=== PATIENT | female | born 1990 | race Caucasian/White ===

== ENCOUNTER 2018-03-13 22:48 | Emergency (ER) | payer OTHER, MEDICAID, SELFPAY ==
[2018-03-13 23:04] VITALS: BP 110/78; PULSE 108; RESP 18; TEMP 36.9; O2SAT 99; BMI 27.4
[2018-03-13 23:25] LABS: RBC Urine None Seen (0-5/HPF); WBC Urine None Seen (0-5/HPF)
[2018-03-13 23:26] LABS: Appearance Urine UA CLEAR; Bilirubin Urine UA NEGATIVE (NEGATIVE); Color Urine UA YELLOW; Glucose Urine UA 2+ g/dL (Normal); Ketones Urine UA TRACE (NEGATIVE); Leukocyte Esterase Urine UA NEGATIVE (NEGATIVE); Nitrite Urine UA NEGATIVE (Negative); Occult Blood Urine UA NEGATIVE (Negative); Protein Urine UA NEGATIVE (Negative); Urobilinogen Urine UA 0.2 E.U./dL (0.2); pH Urine UA 7.5 (4.5-8.0)
[2018-03-13 23:32] LABS: Pregnancy Test Urine Negative (Negative)
[2018-03-13 23:42] LABS: Squamous Epithelial Cell Urine 0-1 /HPF
[2018-03-13 23:43] LABS: Culture Indicated Urine Cult Not Indicated
--- NOTE | 2018-03-14 00:22 | ED.BACK ---
HPI - Back Pain/Injury General Chief Complaint: Back Pain/Injury Stated Complaint: THINKS KIDNEY INFECTION Time Seen by Provider: 03/14/18 00:12 Source: patient Mode of arrival: ambulatory Limitations: no limitations History of Present Illness HPI Narrative: Patient is a 19-year-old female who presents with left flank pain. She says this frequently feels like her kidney infections. Her she is a type 1 diabetic. She never has positive urine cultures. She was admitted once with severe sepsis. Her symptoms started today. She has got good at recognizing the symptoms. Sometimes the pain radiates down like her to her abdomen but not typically. No history of kidney stones. She denies any injury. MD Complaint: back pain Related Data Previous Rx's Medication Instructions Recorded sulfamethoxazole-trimethoprim 1 tab PO BID 5 Days #10 tab 03/14/18 [Bactrim DS] Allergies Allergy/AdvReac Type Severity Reaction Status Date / Time ciprofloxacin [From Cipro] Allergy Intermediate Verified 03/13/18 23:12 lidocaine Allergy Intermediate Verified 03/13/18 23:12 vancomycin Allergy Verified 03/13/18 23:12 Review of Systems Review of Systems GENERAL: Denies chills, fatigue, malaise, fever, sweats, travel HEENT: Denies sinus pain, ear pain, sore throat, difficulty swallowing, neck pain RESPIRATORY: Denies dyspnea, cough, wheezing, hemoptysis, sputum. CARDIOVASCULAR: Denies chest pain, palpitations, orthopnea, edema GASTROINTESTINAL: Denies nausea, vomiting, abdominal pain, diarrhea, constipation, melena. : MUSCULOSKELETAL: Denies weakness, joint pain, or bony pain SKIN: No rash, no erythema, no pruritus NEUROLOGIC: Denies weakness, dizziness, headache, numbness, change in speech, confusion PSYCHIATRIC: No concerning psychosocial issues. 12 point review of systems is negative except for those stated above and HPI PFSH Social History Smoking Status: Never smoker Exam Initial Vital Signs Initial Vital Signs: Vital Signs Temperature 98.4 F 03/13/18 23:04 Pulse Rate 108 H 03/13/18 23:04 Respiratory Rate 18 03/13/18 23:04 Blood Pressure 110/78 03/13/18 23:04 Pulse Oximetry 99 03/13/18 23:04 GENERAL: Well-appearing, well-nourished and in no acute distress. HEENT: Head atraumatic,EOMI, pupils reactive, face symmetric, moist mucous membranes CARDIOVASCULAR: Regular rate and rhythm without murmurs, rubs or gallops. RESPIRATORY: Breath sounds equal bilaterally, no wheezes rales or rhonchi. ABDOMEN: Soft, nontender. Normoactive bowel sounds all 4 quadrants. No guarding or rebound. : Mild left flank pain EXTREMITIES: Normal range of motion, no clubbing or edema. Neurovascularly intact NEUROLOGICAL: Alert and oriented x4.Normal gait and speech. Cranial nerves II through XII grossly intact. SKIN: Warm, dry, no laceration, no petechiae, no rashes or lesions. Course Orders Ordered: ED Orders 03/13/18 23:24 Test Urine Stat Urinalysis and Microscopic Stat 03/14/18 00:30 Basic Metabolic Panel Stat Complete Blood Count AUTO DIFF Stat Discontinued Medications Sodium Chloride (Normal Saline 0.9%) 1,000 mls @ 1,000 mls/hr IV BOLUS ONE Stop: 03/14/18 01:23 Last Infusion: 03/14/18 01:24 Dose: 0 mls/hr Admin: 03/14/18 00:33 Dose: 1,000 mls/hr Ketorolac Tromethamine (Toradol) 15 mg IV NOW ONE Stop: 03/14/18 00:36 Last Admin: 03/14/18 00:38 Dose: 15 mg Ondansetron HCl (Zofran) 4 mg IV NOW ONE Stop: 03/14/18 00:36 Last Admin: 03/14/18 00:39 Dose: 4 mg Trimethoprim/Sulfamethoxazole (Bactrim Ds Prepack) 1 bottle MISC SEEINSTR ONE Stop: 03/14/18 01:10 Last Admin: 03/14/18 01:19 Dose: 1 bottle Vital Signs - 8 hr 03/13/18 23:04 03/14/18 00:45 03/14/18 01:24 Temperature 98.4 F 98.1 F Pulse Rate 108 H 80 80 Respiratory Rate 18 18 17 Blood Pressure 110/78 107/70 Blood Pressure [Right Arm] 109/75 Pulse Oximetry 99 99 99 MDM - Back Pain/Injury Lab Data Result diagrams: 03/14/18 00:30 03/14/18 00:30 Lab Results 03/13/18 03/14/18 03/14/18 Range/Units 23:24 00:30 00:30 WBC 6.1 (4.5-11.0) X10^3/uL RBC 4.71 (4.0-5.2) X10^6/uL Hgb 13.9 (12.0-16.0) g/dL Hct 41.5 (36-46) % MCV 88.0 (80-100) fL MCH 29.5 (26-34) PG MCHC 33.6 (30-36) % RDW 13.2 (11.6-14.8) % Plt Count 300 (150-400) X10^3/uL Neut % (Auto) 38.4 L (50-75) % Lymph % (Auto) 48.5 H (25-40) % [place] % (Auto) 10.3 (3-14) % Eos % (Auto) 2.0 (2-4) % Baso % (Auto) 0.8 (0-2) % Neut # (Auto) 2300 L (3534-6324) /uL Sodium 141 (137-145) mmol/L Potassium 4.0 (3.4-5.1) mmol/L Chloride 104 (98-107) mmol/L Carbon Dioxide 26 (22-32) mmol/L BUN 11 (7-17) mg/dL Creatinine 0.60 (0.52-1.04) mg/dL Estimated GFR > 60.0 (>60) mL/min BUN/Creatinine Ratio 18.3 (6-22) Glucose 235 H (70-100) mg/dL Calcium 8.7 (8.4-10.2) mg/dL Urine Color Yellow Urine Appearance Clear Urine pH 7.5 (4.5-8.0) Ur Specific [place] 1.010 (1.000-1.035) Urine Protein Negative (Negative) Urine Glucose (UA) 2+ (Normal) g/dL Urine Ketones Trace H (NEGATIVE) Urine Occult Blood Negative (Negative) Urine Nitrate Negative (Negative) Urine Bilirubin Negative (NEGATIVE) Urine Urobilinogen 0.2 (0.2) E.U./dL Ur Leukocyte Esterase Negative (NEGATIVE) Urine RBC None seen (0-5/HPF) Urine WBC None seen (0-5/HPF) Ur Squamous Epith Cells 0-1 /hpf Urine Bacteria Continuity Coordinator Ur Culture Indicated? Cult not indicated Micro UA Comment Not Reportable Urine Test Negative (Negative) MDM Narrative Medical decision making narrative: At this time patient does not appear septic or toxic. Her urine and blood work were reassuring. She says that her urine is or is negative. His will give her Bactrim for 5 days. In return if needed. She is type 1 diabetic and increased risk. No sign of DKA. Discharge Plan Departure Patient Disposition: Home Clinical Impression: Pyelonephritis Discharge Date/Time: 03/14/18 01:24 Interventions: ED Discharge Assessment Last Done: 03/14/18 01:24 Instructions: Kidney Infection Activity Restrictions/Additional Instructions: *You have been diagnosed with probable kidney infection *What to do: Urine and blood work today within normal limits *Continue to take medications as directed Bactrim 1 pill twice a day for 5 days *Follow up with your primary care provider in 2-3 days *Return to ER if you should have worsening pain, inability to tolerate fluids, increasing glucose or any new, worsening or concerning symptoms Prescriptions: New sulfamethoxazole-trimethoprim [Bactrim DS] 800-160 mg tablet 1 tab PO BID 5 Days Qty: 10 RF: 0
[2018-03-14 00:33] LABS: Add Manual Diff / Slide Review NO; Basophils Percent Auto 0.8 % (0-2); Hematocrit 41.5 % (36-46); Hemoglobin 13.9 g/dL (12.0-16.0); Lymphocytes Percent Auto 48.5 % (25-40); Mean Corpuscular HGB Conc 33.6 % (30-36); Mean Corpuscular Hemoglobin 29.5 PG (26-34); Monocytes Percent Auto 10.3 % (3-14); Neutrophils Absolute Auto 2300 /uL (3000-5900); Neutrophils Percent Auto 38.4 % (50-75); Platelet Count 300 X10^3/uL (150-400); Red Blood Cell Count 4.71 X10^6/uL (4.0-5.2); Red Cell Distribution Width 13.2 % (11.6-14.8); White Blood Cell Count 6.1 X10^3/uL (4.5-11.0)
[2018-03-14] MEDS: SODIUM CHLORIDE 0.9% 1,000 ML 1000 ML IV (00:33)
[2018-03-14] MEDS: KETOROLAC 60 MG/2 ML VIAL 15 MG IV (00:38)
[2018-03-14] MEDS: ONDANSETRON 4 MG/2 ML INJ IV (00:39)
[2018-03-14 00:44] LABS: BUN Creatinine Ratio 18.3 (6-22); Blood Urea Nitrogen 11 mg/dL (7-17); Calcium 8.7 mg/dL (8.4-10.2); Carbon Dioxide 26 mmol/L (22-32); Chloride 104 mmol/L (98-107); Estimated Glomerular Filt Rate > 60.0 mL/min (>60); Glucose 235 mg/dL (70-100); HEMOLYSIS < 15 (0-50); Sodium 141 mmol/L (137-145)
[2018-03-14 00:45] VITALS: BP 109/75; PULSE 80; RESP 18; O2SAT 99
[2018-03-14] MEDS: TRIMETH/SULFA 160/800 PREPACK 1 BOTTLE MISC (01:19)
[2018-03-14 01:24] VITALS: BP 107/70; PULSE 80; RESP 17; TEMP 36.7; O2SAT 99
== END 2018-03-14 01:24 | disposition home or self-care (01) ==
PROVIDERS: Emergency Provider Emergency Medicine
DX: N12 Tubulo-interstitial nephritis, not specified as acute or chronic (principal)
CPT/HCPCS: 36591; 80048; 81001; 81025; 85025; 96361; 96374; 96375; 99283; 99284; J1885; J2405

== ENCOUNTER 2018-10-01 19:33 | Emergency (ER) | payer OTHER, MEDICAID, SELFPAY ==
[2018-10-01 20:05] VITALS: BP 126/79; PULSE 96; RESP 15; TEMP 37.1; O2SAT 100; BMI 29.2
--- NOTE | 2018-10-01 20:32 | ED.UPPEXIN ---
HPI - Extremity Injury (Upper) <SAHRA Seymour-BC - Last Filed: 10/01/18 21:50> General Chief Complaint: Extremity Injury, Upper Stated Complaint: LT SHOULDER PAIN Time Seen by Provider: 10/01/18 20:11 Source: patient Mode of arrival: ambulatory Limitations: no limitations History of Present Illness HPI narrative: The patient is a 28-year-old female nonsmoker with history of injury to left shoulder who comes with a chief complaint of left shoulder pain. She was seen at her primary care physician's for shoulder pain 3 months ago, and has scheduled follow-up with Orthopedics soon. However she is going on a trip in a few days and would like to have it fixed now. She states her pain is getting worse, mobility is getting worse. She had a negative x-ray, and her PCP suspect rotator cuff tear. She is taking meloxicam for pain. she denies any repeat injury trauma or this is to get a new x-ray. Related Data Previous Rx's Medication Instructions Recorded cyclobenzaprine 10 mg PO TID PRN #30 tab 10/01/18 diclofenac sodium [Voltaren] 2 gram TOP QID PRN #100 gram 10/01/18 Allergies Allergy/AdvReac Type Severity Reaction Status Date / Time ciprofloxacin [From Cipro] Allergy Intermediate Verified 03/13/18 23:12 lidocaine Allergy Intermediate Verified 03/13/18 23:12 vancomycin Allergy Verified 03/13/18 23:12 Review of Systems <SAHRA Seymour-BC - Last Filed: 10/01/18 21:50> Review of Systems GENERAL: Denies chills, fatigue, malaise, fever, sweats. HEENT: Denies sinus pain, ear pain, sore throat, difficulty swallowing, dizziness. RESPIRATORY: Denies dyspnea, cough, wheezing, hemoptysis, sputum. CARDIOVASCULAR: Denies chest pain, palpitations, orthopnea, edema, GASTROINTESTINAL: Denies nausea, vomiting, abdominal pain, diarrhea, constipation, melena. : Denies dysuria, frequency, incontinence, hematuria, urinary retention. MUSCULOSKELETAL: See HPI SKIN: Denies rash, skin lesions, or other NEUROLOGIC: Denies weakness, headache, numbness, change in speech, confusion, seizures, incoordination. PSYCHIATRIC: No concerning psychosocial issues. 12 point review of systems is negative except for those stated above PFSH <EMILIANA Seymour - Last Filed: 10/01/18 21:50> Social History Smoking Status: Never smoker Social History Smoking Status: Never smoker Exam <EMILIANA Seymour - Last Filed: 10/01/18 21:50> Narrative Exam Narrative: GENERAL: This is a well-nourished, well-developed patient, no acute distress HEAD: Atraumatic. Normocephalic. No temporal or scalp tenderness. EYES: Pupils equal round and reactive. Extraocular motions intact. No scleral icterus. No injection or drainage. NECK: Trachea midline. No JVD or lymphadenopathy. Supple, nontender, no meningeal signs. RESPIRATORY: No cough. No increased respiratory effort. EXTREMITIES: Generalized pain to palpation left shoulder. Patient is able to abduct and adduct. Negative empty can test. Patient is only able to extend her right shoulder to 90?. Positive radial pulse. BACK: Nontender without deformity or crepitance. No flank tenderness. NEURO: AOx3. SKIN: No rash or erythema. No rash erythema ecchymosis noted left shoulder. Initial Vital Signs Initial Vital Signs: Vital Signs Temperature 98.7 F 10/01/18 20:05 Pulse Rate 96 H 10/01/18 20:05 Respiratory Rate 15 10/01/18 20:05 Blood Pressure 126/79 10/01/18 20:05 Pulse Oximetry 100 10/01/18 20:05 <Indira Addison DO - Last Filed: 10/02/18 02:29> Initial Vital Signs Initial Vital Signs: Vital Signs Temperature 98.7 F 10/01/18 20:05 Pulse Rate 96 H 10/01/18 20:05 Respiratory Rate 15 10/01/18 20:05 Blood Pressure 126/79 10/01/18 20:05 Pulse Oximetry 100 10/01/18 20:05 Course <EMILIANA Seymour - Last Filed: 10/01/18 21:50> Vital Signs - 8 hr 10/01/18 20:05 10/01/18 20:45 10/01/18 21:02 Temperature 98.7 F Pulse Rate 96 H 90 Pulse Rate [Left Radial] 90 Respiratory Rate 15 14 Blood Pressure 126/79 120/74 Pulse Oximetry 100 99 <Indira Addison DO - Last Filed: 10/02/18 02:29> Vital Signs - 8 hr 10/01/18 20:05 10/01/18 20:45 10/01/18 21:02 Temperature 98.7 F Pulse Rate 96 H 90 Pulse Rate [Left Radial] 90 Respiratory Rate 15 14 Blood Pressure 126/79 120/74 Pulse Oximetry 100 99 MDM - Extremity Injury (Upper) <SAHRA Seymour-BC - Last Filed: 10/01/18 21:50> MDM Narrative Medical decision making narrative: The patient is a 28-year-old female who presents with the chief complaint left shoulder pain. she has had x-rays which were negative and declines further x-rays. She is looking for pain management for her trip coming up. She may benefit from Flexeril, so I gave her a prescription. We also discussed use of Voltaren gel. She is allergic to lidocaine and fortunately. I discussed [id number] exercises to help prevent frozen shoulder. I offered to give her contact information for [facility], but she would rather follow up as previously arranged at [facility]. Discussed return precautions of acute concerns. Patient has no questions or concerns upon discharge. Discharge Plan Departure Patient Disposition: Home Clinical Impression: Acute shoulder pain Qualifiers: Laterality: left Qualified Code(s): M25.512 - Pain in left shoulder Discharge Date/Time: 10/01/18 21:02 Interventions: ED Discharge Assessment Last Done: 10/01/18 21:02 Instructions: How To Perform RICE (Rest, Ice, Compress, Elevate), DI for Shoulder Pain Activity Restrictions/Additional Instructions: I have given you prescriptions for pain medication as well as pain cream. Please follow up with primary care provider and orthopedist as we discussed. Please use rest ice compression elevation. Please do not use a sling as this can lead to frozen shoulder. Please come back to emergency department for any acute concerns. Prescriptions: New diclofenac sodium [Voltaren] 1 % gel 2 gram TOP QID PRN (Reason: pain) Qty: 100 RF: 0 cyclobenzaprine 10 mg tablet 10 mg PO TID PRN (Reason: muscle spasm) Qty: 30 RF: 0 <Indira Addison DO - Last Filed: 10/02/18 02:29> Cosign ED Attending Cosignature Attestation: I was immediately available in the department for consultation. Documentation has been reviewed. I agree with assessment and plan.
[2018-10-01 20:45] VITALS: PULSE 90
[2018-10-01 21:02] VITALS: BP 120/74; PULSE 90; RESP 14; O2SAT 99
== END 2018-10-01 21:02 | disposition home or self-care (01) ==
PROVIDERS: Emergency Provider Nurse Practitioner Family
DX: M25.512 Pain in left shoulder (principal)
CPT/HCPCS: 99282; 99283

== ENCOUNTER 2019-04-10 03:21 | Emergency (ER) | payer SELFPAY ==
[2019-04-10 03:33] VITALS: BP 110/73; PULSE 95; RESP 19; TEMP 36.4; O2SAT 94; BMI 28.3
[2019-04-10 03:43] LABS: HCO3 VBG 24 mmol/L (23-28); Oxygen Saturation VBG 96 % (70-75); PCO2 VBG 36.5 mmHg (45-50); PO2 VBG 81 mmHg (35-45); Total CO2 VBG 25 mmol/L (24-29); pH VBG 7.43 (7.33-7.43)
[2019-04-10] MEDS: ONDANSETRON 4 MG/2 ML INJ IV (03:45)
[2019-04-10] MEDS: SODIUM CHLORIDE 0.9% 1,000 ML 1000 ML IV (03:46)
--- NOTE | 2019-04-10 03:49 | ED.NAVMDI ---
HPI - Nausea/Vomiting/Diarrhea General Chief complaint: Nausea/Vomiting/Diarrhea Stated complaint: Type I diabetes feels ketoacidosis Time Seen by Provider: 04/10/19 03:30 Source: patient Mode of arrival: Ambulatory Limitations: no limitations History of Present Illness HPI Narrative: Patient is a 29-year-old female with history of type 1 diabetes and gastroparesis presenting with vomiting for the last 2-1/2 hours. She says she was doing okay earlier in the day. She was able to give herself some insulin. However the vomiting has been quite persistent for last 2-1/2 hours. Her glucose is actually 189 in the ED. She has diffuse abdominal discomfort. No fevers or chills. She got a little lightheaded today which is abnormal for her that has not happened when she has had gastroparesis flares. MD complaint: nausea, vomiting and abdominal pain Onset (ago): hour(s) (2.5) Associated Abdominal Pain: Yes Location of pain: diffuse Related Data Previous Rx's Medication Instructions Recorded cyclobenzaprine 10 mg PO TID PRN #30 tab 10/01/18 diclofenac sodium [Voltaren] 2 gram TOP QID PRN #100 gram 10/01/18 ondansetron 4 mg PO Q8H PRN #10 tab 04/10/19 Allergies Allergy/AdvReac Type Severity Reaction Status Date / Time ciprofloxacin [From Cipro] Allergy Intermediate Verified 03/13/18 23:12 lidocaine Allergy Intermediate Verified 03/13/18 23:12 vancomycin Allergy Verified 03/13/18 23:12 Review of Systems Review of Systems Narrative: GENERAL: Denies chills, fatigue, malaise, fever, sweats, travel HEENT: Denies sinus pain, ear pain, sore throat, difficulty swallowing, neck pain RESPIRATORY: Denies dyspnea, cough, wheezing, hemoptysis, sputum. CARDIOVASCULAR: Denies chest pain, palpitations, orthopnea, edema GASTROINTESTINAL: See HPI : Denies dysuria, frequency, incontinence, hematuria, urinary retention, flank pain. MUSCULOSKELETAL: Denies weakness, joint pain, or bony pain SKIN: No rash, no erythema, no pruritus NEUROLOGIC: Denies weakness, dizziness, headache, numbness, change in speech, confusion PSYCHIATRIC: No concerning psychosocial issues. 12 point review of systems is negative except for those stated above and HPI Patient History Medical History Type 1 diabetes (Acute) Social History Smoking Status: Never smoker alcohol intake frequency: a few times a month Substance Use Type: does not use Exam Initial Vital Signs Initial Vital Signs: Vital Signs Temperature 97.6 F 04/10/19 03:33 Pulse Rate 95 H 04/10/19 03:33 Respiratory Rate 19 04/10/19 03:33 Blood Pressure 110/73 04/10/19 03:33 Pulse Oximetry 94 04/10/19 03:33 GENERAL: Well-appearing, well-nourished and in no acute distress. HEENT: Head atraumatic,EOMI, pupils reactive, face symmetric, moist mucous membranes CARDIOVASCULAR: Regular rate and rhythm without murmurs, rubs or gallops. RESPIRATORY: Breath sounds equal bilaterally, no wheezes rales or rhonchi. ABDOMEN: Soft, nontender. Normoactive bowel sounds all 4 quadrants. No guarding or rebound : No CVA tenderness EXTREMITIES: Normal range of motion, no clubbing or edema. Neurovascularly intact NEUROLOGICAL: Alert and oriented x4.Normal gait and speech. SKIN: Warm, dry, no laceration, no petechiae, no rashes or lesions. Course Orders Ordered: ED Orders 04/10/19 03:30 EKG-12 Lead Stat 04/10/19 03:32 Venous Blood Gas Stat 04/10/19 03:41 Complete Blood Count AUTO DIFF Stat Comprehensive Metabolic Panel Stat Ketones (Beta-Hydroxybutyrate) Stat Lactate (Lactic Acid) Stat Procalcitonin Stat Discontinued Medications Sodium Chloride (Normal Saline 0.9%) 1,000 mls @ 1,000 mls/hr IV BOLUS ONE Stop: 04/10/19 04:29 Last Infusion: 04/10/19 04:50 Dose: 0 mls/hr Documented by: Admin: 04/10/19 03:46 Dose: 1,000 mls/hr Documented by: CARLOS Ketorolac Tromethamine (Toradol) 30 mg IM NOW ONE Stop: 04/10/19 03:49 Last Admin: 04/10/19 03:55 Dose: 30 mg Documented by: CARLOS Metoclopramide HCl (Reglan) 10 mg IV NOW ONE Stop: 04/10/19 03:57 Last Admin: 04/10/19 03:58 Dose: 10 mg Documented by: CARLOS Ondansetron HCl (Zofran) 4 mg IV NOW ONE Stop: 04/10/19 03:31 Last Admin: 04/10/19 03:45 Dose: 4 mg Documented by: CARLOS Vital Signs Vital signs: Vital Signs - 8 hr 04/10/19 03:33 04/10/19 04:08 04/10/19 04:51 Temperature 97.6 F Pulse Rate 95 H 81 88 Respiratory Rate 19 18 Blood Pressure 110/73 Blood Pressure [Left Arm] 111/71 106/71 Pulse Oximetry 94 96 99 MDM - Nausea/Vomiting/Diarrhea Lab Data Attestation: I reviewed the patient's lab results. Result diagrams: 04/10/19 03:41 04/10/19 03:41 Labs: Lab Results 04/10/19 04/10/19 04/10/19 Range/Units 03:32 03:41 03:41 WBC 8.1 (4.5-11.0) X10^3/uL RBC 4.70 (4.0-5.2) X10^6/uL Hgb 13.9 (12.0-16.0) g/dL Hct 40.7 (36-46) % MCV 86.5 (80-100) fL MCH 29.6 (26-34) PG MCHC 34.2 (30-36) % RDW 13.1 (11.6-14.8) % Plt Count 295 (150-400) X10^3/uL Neut % (Auto) 62.1 (50-75) % Lymph % (Auto) 25.4 (25-40) % [facility] % (Auto) 10.2 (3-14) % Eos % (Auto) 1.5 L (2-4) % Baso % (Auto) 0.8 (0-2) % Neut # (Auto) 5000 (3771-2430) /uL Lymph # (Auto) 2100 (6125-9874) /uL [facility] # (Auto) 800 (0-900) /uL Eos # (Auto) 100 (0-450) /uL Baso # (Auto) 100 (0-100) /uL VBG pH 7.43 (7.33-7.43) VBG pCO2 36.5 L (45-50) mmHg VBG pO2 81 H (35-45) mmHg VBG HCO3 24 (23-28) mmol/L VBG Total CO2 25 (24-29) mmol/L VBG O2 Saturation 96 H (70-75) % VBG Base Excess 0.0 (0-4) mmol/L Sodium (137-145) mmol/L Potassium (3.4-5.1) mmol/L Chloride (98-107) mmol/L Carbon Dioxide (22-32) mmol/L BUN (7-17) mg/dL Creatinine (0.52-1.04) mg/dL Estimated GFR (>60) mL/min BUN/Creatinine Ratio (6-22) Glucose (70-100) mg/dL Lactate (0.7-2.1) mmol/L Calcium (8.4-10.2) mg/dL Total Bilirubin (0.2-1.3) mg/dL AST (14-36) IU/L ALT (<35) IU/L Alkaline Phosphatase (38-126) U/L Total Protein (6.3-8.2) g/dL Albumin (3.5-5.0) g/dL Globulin (1.7-4.1) g/dL Albumin/Globulin Ratio (1.0-2.8) Procalcitonin < 0.05 (<0.5) ng/mL Ketones (<0.27) mmol/L 04/10/19 04/10/19 Range/Units 03:41 03:41 WBC (4.5-11.0) X10^3/uL RBC (4.0-5.2) X10^6/uL Hgb (12.0-16.0) g/dL Hct (36-46) % MCV (80-100) fL MCH (26-34) PG MCHC (30-36) % RDW (11.6-14.8) % Plt Count (150-400) X10^3/uL Neut % (Auto) (50-75) % Lymph % (Auto) (25-40) % [facility] % (Auto) (3-14) % Eos % (Auto) (2-4) % Baso % (Auto) (0-2) % Neut # (Auto) (3512-2941) /uL Lymph # (Auto) (7837-6770) /uL [facility] # (Auto) (0-900) /uL Eos # (Auto) (0-450) /uL Baso # (Auto) (0-100) /uL VBG pH (7.33-7.43) VBG pCO2 (45-50) mmHg VBG pO2 (35-45) mmHg VBG HCO3 (23-28) mmol/L VBG Total CO2 (24-29) mmol/L VBG O2 Saturation (70-75) % VBG Base Excess (0-4) mmol/L Sodium 139 (137-145) mmol/L Potassium 4.2 (3.4-5.1) mmol/L Chloride 106 (98-107) mmol/L Carbon Dioxide 25 (22-32) mmol/L BUN 16 (7-17) mg/dL Creatinine 0.60 (0.52-1.04) mg/dL Estimated GFR > 60.0 (>60) mL/min BUN/Creatinine Ratio 26.7 H (6-22) Glucose 185 H (70-100) mg/dL Lactate 0.8 (0.7-2.1) mmol/L Calcium 8.5 (8.4-10.2) mg/dL Total Bilirubin 0.3 (0.2-1.3) mg/dL AST 23 (14-36) IU/L ALT 15 (<35) IU/L Alkaline Phosphatase 40 (38-126) U/L Total Protein 6.8 (6.3-8.2) g/dL Albumin 3.9 (3.5-5.0) g/dL Globulin 2.9 (1.7-4.1) g/dL Albumin/Globulin Ratio 1.3 (1.0-2.8) Procalcitonin (<0.5) ng/mL Ketones 0.16 (<0.27) mmol/L Point of Care Testing Test Results Negative Glucose POC 190 Urine Dip Bedside Urine Glucose 250 mg/dl Bedside Urine Bilirubin - Negative Bedside Urine Ketone - Negative Urine Specific [place] 1.015 Bedside Urine Occult Blood - Negative Bedside Urine pH 7.5 Bedside Urine Protein - Negative Bedside Urine Urobilinogen +/- 1mg Bedside Urine Nitrite - Negative Bedside Urine Leukocytes - Negative Esterase MDM Narrative Medical decision making narrative: Patient is not in DKA. This is likely has gastroparesis. After Zofran and Reglan she is overall feeling much better tolerating fluids. Feels like she can go home. She has Reglan at home requesting prescription for Zofran. Discharge Plan Departure Patient Disposition: Home Clinical Impression: Gastroparesis Discharge Date/Time: 04/10/19 05:00 Instructions: DI for Gastroparesis Activity Restrictions/Additional Instructions: *You have been diagnosed with gastroparesis *What to do: At this time no sign of DKA. Recommend increasing fluid intake. *Continue to take medications as directed Zofran 4 mg every 8 hours if needed for nausea or vomiting *Follow up with your primary care provider in 2-3 days *Return to ER if you should have persistent nausea vomiting increased abdominal pain high glucose or any new, worsening or concerning symptoms Prescriptions: New ondansetron 4 mg tablet,disintegrating 4 mg PO Q8H PRN (Reason: nausea and vomiting) Qty: 10 RF: 0 No Action diclofenac sodium [Voltaren] 1 % gel 2 gram TOP QID PRN (Reason: pain) Qty: 100 RF: 0 cyclobenzaprine 10 mg tablet 10 mg PO TID PRN (Reason: muscle spasm) Qty: 30 RF: 0
[2019-04-10 03:54] LABS: Add Manual Diff / Slide Review NO; Basophils Absolute Auto 100 /uL (0-100); Basophils Percent Auto 0.8 % (0-2); Eosinophils Absolute Auto 100 /uL (0-450); Eosinophils Percent Auto 1.5 % (2-4); Hematocrit 40.7 % (36-46); Hemoglobin 13.9 g/dL (12.0-16.0); Lymphocytes Absolute Auto 2100 /uL (1100-4500); Lymphocytes Percent Auto 25.4 % (25-40); Mean Corpuscular HGB Conc 34.2 % (30-36); Mean Corpuscular Hemoglobin 29.6 PG (26-34); Mean Corpuscular Volume 86.5 fL (80-100); Monocytes Absolute Auto 800 /uL (0-900); Monocytes Percent Auto 10.2 % (3-14); Neutrophils Absolute Auto 5000 /uL (1500-7000); Neutrophils Percent Auto 62.1 % (50-75); Platelet Count 295 X10^3/uL (150-400); Red Cell Distribution Width 13.1 % (11.6-14.8); White Blood Cell Count 8.1 X10^3/uL (4.5-11.0)
[2019-04-10] MEDS: KETOROLAC 60 MG/2 ML VIAL 30 MG IM (03:55)
[2019-04-10] MEDS: METOCLOPRAMIDE 10 MG/2 ML INJ IV (03:58)
[2019-04-10 03:59] LABS: Lactate (Lactic Acid) 0.8 mmol/L (0.7-2.1)
[2019-04-10 04:01] LABS: Alanine Aminotransferase 15 IU/L (<35); Albumin 3.9 g/dL (3.5-5.0); Albumin Globulin Ratio 1.3 (1.0-2.8); Alkaline Phosphatase 40 U/L (38-126); Aspartate Aminotransferase 23 IU/L (14-36); BUN Creatinine Ratio 26.7 (6-22); Bilirubin Total 0.3 mg/dL (0.2-1.3); Blood Urea Nitrogen 16 mg/dL (7-17); Calcium 8.5 mg/dL (8.4-10.2); Carbon Dioxide 25 mmol/L (22-32); Chloride 106 mmol/L (98-107); Estimated Glomerular Filt Rate > 60.0 mL/min (>60); Globulin 2.9 g/dL (1.7-4.1); Glucose 185 mg/dL (70-100); HEMOLYSIS 27 (0-50); Potassium 4.2 mmol/L (3.4-5.1); Sodium 139 mmol/L (137-145); Total Protein 6.8 g/dL (6.3-8.2)
[2019-04-10 04:04] LABS: Ketones (Beta-Hydroxybutyrate) 0.16 mmol/L (<0.27)
[2019-04-10 04:08] VITALS: BP 111/71; PULSE 81; O2SAT 96
[2019-04-10 04:17] LABS: Procalcitonin < 0.05 ng/mL (<0.5)
[2019-04-10 04:51] VITALS: BP 106/71; PULSE 88; RESP 18; O2SAT 99
== END 2019-04-10 05:00 | disposition home or self-care (01) ==
PROVIDERS: Emergency Provider Emergency Medicine
DX: K31.84 Gastroparesis (principal)
CPT/HCPCS: 36415; 80053; 81003; 81025; 82009; 82805; 83605; 84145; 85025; 96361; 96374; 96375; 99283; 99284; J1885; J2405; J2765

== ENCOUNTER 2020-01-15 02:39 | Emergency (ER) | payer OTHER, SELFPAY ==
[2020-01-15 02:46] VITALS: BP 129/82; PULSE 110; RESP 16; TEMP 36.8; O2SAT 98; BMI 28.9
--- NOTE | 2020-01-15 02:53 | ED.GENADULT ---
HPI - General Adult General Chief complaint: Upper Respiratory Symptoms Stated complaint: coughing, and wants Covid test Time Seen by Provider: 01/15/20 02:40 Source: patient Mode of arrival: Ambulatory Limitations: no limitations History of Present Illness HPI narrative: Patient is a 29-year-old female. Type 1 diabetic. Here for evaluation approximately 24 hours of a cough. She also states she has subjective fevers. Some nausea no vomiting. No skin changes. Has tried [id number] cough suppressant without any improvement in symptoms. Related Data Previous Rx's Medication Instructions Recorded cyclobenzaprine 10 mg PO TID PRN #30 tab 10/01/18 diclofenac sodium [Voltaren] 2 gram TOP QID PRN #100 gram 10/01/18 ondansetron 4 mg PO Q8H PRN #10 tab 04/10/19 Allergies Allergy/AdvReac Type Severity Reaction Status Date / Time ciprofloxacin [From Cipro] Allergy Intermediate Verified 03/13/18 23:12 lidocaine Allergy Intermediate Verified 03/13/18 23:12 vancomycin Allergy Verified 03/13/18 23:12 Review of Systems Constitutional Constitutional: Reports fever(s) Cardiovascular Cardiovascular: Denies chest pain and Denies dyspnea Respiratory Respiratory: Reports cough, Denies pain with cough and Denies dyspnea Gastrointestinal Gastrointestinal: Denies change in bowel habits and Reports nausea Integumentary/Breasts Skin/Breast: Denies lesions and Denies rash Neurologic Neurologic: Denies behavioral changes Psychiatric Psychiatric: Denies behavioral changes Patient History Medical History Type 1 diabetes (Acute) Social History Smoking Status: Never smoker Smoking Status: Never smoker alcohol intake frequency: a few times a month Substance Use Type: does not use Exam Initial Vital Signs Initial Vital Signs: Vital Signs Temperature 98.2 F 01/15/20 02:46 Pulse Rate 110 H 01/15/20 02:46 Respiratory Rate 16 01/15/20 02:46 Blood Pressure 129/82 01/15/20 02:46 Pulse Oximetry 98 01/15/20 02:46 Const General: cooperative and comfortable Resp Effort & Inspection: normal respiratory effort Auscultation: clear to auscultation bilaterally Cardio Rate: regular rate Rhythm: regular rhythm Skin Lesions: no lesions Rashes: no rashes Neuro General: patient alert and patient awake Cognition: normal cognition Speech: speech normal Extrem General: normal to inspection and capillary refill normal Psych Appearance: grossly normal and well kempt Scores GCS Chester coma scale eye opening: Spontaneous Jeffry coma scale verbal response: Orientated [place] coma scale motor response: Obey commands Jeffry coma scale total score: 15 Course Vital Signs Vital signs: Vital Signs - 8 hr 01/15/20 02:46 Temperature 98.2 F Pulse Rate 110 H Respiratory Rate 16 Blood Pressure 129/82 Pulse Oximetry 98 Medical Decision Making MDM Narrative Medical decision making narrative: Patient tachycardic upon arrival but this improved. Lungs are clear. Not hypoxic. Not tachypneic. Patient was asking for tested for coronavirus which we did. She was given instructions with regard to this and also self quarantine. Feel we could hold on a chest x-ray. Low suspicion for pneumonia. Feeling hold on antibiotics. We did discuss other cough suppressants and decongestants. She was given return precautions. She expressed understanding and agreement. Discharge Plan Departure Patient Disposition: Home Clinical Impression: Cough Discharge Date/Time: 01/15/20 03:08 Instructions: Cough (Alternative Therapy), Cough Activity Restrictions/Additional Instructions: We did test you for COVID-19. This test takes 2-5 days to return we will call you for positive or negative results. Also recommend that you start on a decongestant such as Claritin or Daija or Zyrtec. These medications can be purchased [id number]. Contact her primary provider for follow-up. Return to the emergency department for any new or worsening symptoms Prescriptions: No Action ondansetron 4 mg tablet,disintegrating 4 mg PO Q8H PRN (Reason: nausea and vomiting) Qty: 10 RF: 0 diclofenac sodium [Voltaren] 1 % gel 2 gram TOP QID PRN (Reason: pain) Qty: 100 RF: 0 cyclobenzaprine 10 mg tablet 10 mg PO TID PRN (Reason: muscle spasm) Qty: 30 RF: 0
[2020-01-15 03:05] VITALS: PULSE 85; RESP 16; O2SAT 98
[2020-01-17 04:07] LABS: COVID19 Sendout Not Detected (Not Detected)
== END 2020-01-15 03:08 | disposition home or self-care (01) ==
PROVIDERS: Emergency Provider Emergency Medicine
DX: R05 Cough (principal); R11.0 Nausea; R00.0 Tachycardia, unspecified; E10.9 Type 1 diabetes mellitus without complications
CPT/HCPCS: 87635; 99282

== ENCOUNTER 2021-09-09 20:28 | Emergency (ER) | payer SELFPAY ==
[2021-09-09 20:32] VITALS: BP 107/63; PULSE 77; RESP 18; TEMP 36.8; O2SAT 99; BMI 27.9
--- NOTE | 2021-09-09 20:49 | DI.RAD.S_ITS ---
PROCEDURE: XR SHOULDER RT MIN 2V INDICATIONS: pain, locked TECHNIQUE: 2 views of the shoulder were acquired. COMPARISON: None. FINDINGS: Bones: No fractures or dislocations. No suspicious bony lesions. Visualized ribs appear intact. Soft tissues: No suspicious soft tissue calcifications. IMPRESSION: unremarkable right shoulder radiographs Approved by: Frederic Min M.D. on 09/09/2021 at 21:13
--- NOTE | 2021-09-09 20:54 | ED.UPPEXIN ---
HPI - Extremity Injury (Upper) General Chief Complaint: Extremity Injury, Upper Stated Complaint: Right shoulder locked up Time Seen by Provider: 09/09/21 20:49 Source: patient Mode of arrival: Ambulatory History of Present Illness HPI narrative: 31-year-old female nonsmoker with noncontributory medical history presents with a chief complaint of right shoulder pain for the past few days. She states she has sharp and stabbing severe pain with any attempted range of motion. She denies numbness, tingling or weakness. She denies any history of the same. She states that she had been lifting weights recently and shoulder started hurting in the aftermath. She does have a prior history of left-sided rotator cuff injury and states this feels similar. She is otherwise well and free of complaint Related Data Previous Rx's Medication Instructions Recorded cyclobenzaprine 10 mg tablet 10 mg PO TID PRN #30 tab 10/01/18 diclofenac sodium 1 % topical gel 2 gram TOP QID PRN #100 gram 10/01/18 (Voltaren) ondansetron 4 mg disintegrating 4 mg PO Q8H PRN #10 tab 04/10/19 tablet cyclobenzaprine 10 mg tablet 10 mg PO TID PRN #14 tab 09/09/21 hydrocodone 5 mg-acetaminophen 325 1 tab PO Q4-6H PRN #10 tab 09/09/21 mg tablet ketorolac 10 mg tablet 10 mg PO Q6H PRN #14 tab 09/09/21 Allergies Allergy/AdvReac Type Severity Reaction Status Date / Time ciprofloxacin [From Cipro] Allergy Intermediate Verified 09/09/21 20:38 lidocaine Allergy Intermediate Verified 09/09/21 20:38 vancomycin Allergy Verified 09/09/21 20:38 Review of Systems Review of Systems Narrative: GENERAL: Denies chills, fatigue, malaise, fever, sweats. HEENT: Denies sinus pain, ear pain, sore throat, difficulty swallowing, dizziness. RESPIRATORY: Denies dyspnea, cough, wheezing, hemoptysis, sputum. CARDIOVASCULAR: Denies chest pain, palpitations, orthopnea, edema, GASTROINTESTINAL: Denies nausea, vomiting, abdominal pain, diarrhea, constipation, melena. : Denies dysuria, frequency, incontinence, hematuria, urinary retention. MUSCULOSKELETAL: See HPI SKIN: Denies rash, skin lesions, or other NEUROLOGIC: Denies weakness, headache, numbness, change in speech, confusion, seizures, incoordination. PSYCHIATRIC: No concerning psychosocial issues. 12 point review of systems is negative except for those stated above Patient History Medical History (Updated 09/09/21 @ 21:35 by Vance Cadena DO) Type 1 diabetes Social History Smoking Status: Never smoker Smoking Status: Never smoker alcohol intake frequency: a few times a month Substance Use Type: does not use Exam Narrative Exam Narrative: GEN: AOx3 and in mild distress EYES: Pupils are equal, round, and reactive to light and accommodation. Extraoccular muscles are intact bilaterally. There is no subconjunctival hemorrhage or exudate. CHEST: Lungs are clear to auscultation bilaterally and free of wheezes, rales, or rhonchi. Heart rate is regular rhythm, there are no murmurs, clicks, rubs, or gallops. There is no chest wall tenderness. ABD: Abdomen is soft and nontender. There is no guarding or rebound. Bowel sounds are normal in all 4 quadrants. There is no mass or organomegaly. EXT: Full but painful range of motion right shoulder, no obvious deformity, closed, isolated neurovascularly intact. SKIN: Warm, pink, and dry. No erythema or rash Initial Vital Signs Initial Vital Signs: Vital Signs Temperature 98.3 F 09/09/21 20:32 Pulse Rate 77 09/09/21 20:32 Respiratory Rate 18 09/09/21 20:32 Blood Pressure 107/63 09/09/21 20:32 Pulse Oximetry 99 09/09/21 20:32 Procedures Orthopedic Splinting/Casting Injury #1: Side: right Upper Extremity Injury Location: shoulder Upper Extremity Immobilizer: sling/shoulder immobilizer Post splinting neuro exam: intact Post splinting vascular exam: intact Placed by: Nursing Course Orders Ordered: ED Orders 09/09/21 20:49 XR shoulder RT min 2V Stat Discontinued Medications Hydrocodone Bitart/Acetaminophen (Hydrocodone/Acet 5/325 Prepack) 1 bottle MISC SEEINSTR ONE Stop: 09/09/21 21:33 Last Admin: 09/09/21 21:44 Dose: 1 bottle Documented by: LUCRECIA Cyclobenzaprine HCl (Cyclobenzaprine 10 Mg Prepack) 1 bottle MISC SEEINSTR ONE Stop: 09/09/21 21:33 Last Admin: 09/09/21 21:44 Dose: 1 bottle Documented by: LUCRECIA Vital Signs Vital signs: Vital Signs - 8 hr 09/09/21 20:32 Temperature 98.3 F Pulse Rate 77 Respiratory Rate 18 Blood Pressure 107/63 Pulse Oximetry 99 MDM - Extremity Injury (Upper) Imaging Data Extremity x-ray #1: Radiologist's Impression: [address] [id number] XRay Report Signed Patient: Helena Conde MR#: [id number] : 1990 Acct:[id number] Age/Sex: 31 / F Date of Service: 09/09/21 Loc: ED Accession Number: [id number] ?? Procedure: XR shoulder RT min 2V Ordering Provider: Vance Cadena D.O. PROCEDURE:? XR SHOULDER RT MIN 2V ? INDICATIONS:? pain, locked ? TECHNIQUE:? 2 views of the shoulder were acquired.? ? COMPARISON:? None. ? FINDINGS:? ? Bones:? No fractures or dislocations.? No suspicious bony lesions.? Visualized ribs appear intact.? ? Soft tissues:? No suspicious soft tissue calcifications.? ? IMPRESSION:? unremarkable right shoulder radiographs ? ? ? Approved by: Frederic Min M.D. on 09/09/2021 at 21:13? Discharge Plan Departure Patient Disposition: Home Clinical Impression: Acute pain of right shoulder Instructions: DI for Shoulder Sprain Activity Restrictions/Additional Instructions: *You have been diagnosed with [right shoulder pain] *What to do: *Please continue to take your regular medications as directed. [x ] New medication prescriptions sent to your pharmacy: [ [facility]] [ ] New medication written as a paper prescription [ ] No new medications given *Please follow up with your primary care provider in 2-3 days, call for an appointment. Let them know you were seen in the Emergency Department and that we ask that you be seen in follow up. We will electronically transmit a record of today's note if your PCP is in our system *If you do not have a primary care provider please contact the [facility] Resource line at [phone]. They will ask some questions about your medical history and help get you set up with a doctor in the community. *Return to Emergency Department if you should have any new, worsening or concerning symptoms, such as [fever greater than 101 F, shaking chills, worsening pain, persistent vomiting or other bothersome symptoms] You have been prescribed a short course of narcotic medications. These are potentially dangerous and addictive medications that should be used carefully. While on these medications you cannot drive or operate heavy machinery. Additionally, you cannot sign legal documents or perform any duties such as this. Many people get constipated on narcotic medications so it would be advisable to discuss stool softeners with the pharmacist when you burr picker your prescription. Please understand that we cannot provide further refills of narcotics or controlled substances through the ED and your pain management will need to be through your Primary Care Provider Prescriptions: New cyclobenzaprine 10 mg tablet 10 mg PO TID PRN (Reason: muscle spasm) Qty: 14 0RF hydrocodone-acetaminophen 5-325 mg tablet 1 tab PO Q4-6H PRN (Reason: pain) Qty: 10 0RF ketorolac 10 mg tablet 10 mg PO Q6H PRN (Reason: pain) Qty: 14 0RF No Action ondansetron 4 mg tablet,disintegrating 4 mg PO Q8H PRN (Reason: nausea and vomiting) Qty: 10 0RF diclofenac sodium [Voltaren] 1 % gel 2 gram TOP QID PRN (Reason: pain) Qty: 100 0RF Rx Instructions: apply to left shoulder cyclobenzaprine 10 mg tablet 10 mg PO TID PRN (Reason: muscle spasm) Qty: 30 0RF
[2021-09-09] MEDS: CYCLOBENZAPRINE 10 MG PREPACK 1 BOTTLE MISC (21:44)
[2021-09-09] MEDS: HYDROCODONE/ACET 5/325 PREPACK 1 BOTTLE MISC (21:44)
== END 2021-09-09 21:51 | disposition home or self-care (01) ==
PROVIDERS: Emergency Provider Emergency Medicine
DX: M25.511 Pain in right shoulder (principal)
CPT/HCPCS: 73030; 99282; 99283

== ENCOUNTER 2022-07-04 13:25 | Emergency (ER) | payer OTHER, SELFPAY ==
[2022-07-04 13:34] VITALS: BP 141/74; PULSE 102; RESP 18; TEMP 36.8; O2SAT 99; BMI 27.3
[2022-07-04 14:25] LABS: Influenza A - CEPHEID Flu A NEGATIVE (NEGATIVE); Influenza B - CEPHEID Flu B NEGATIVE (NEGATIVE); Respiratory Syncytial Virus Negative (Negative)
[2022-07-04 14:26] LABS: COVID-19 CEPHEID 4-PLEX PCR Negative (Negative)
[2022-07-04 16:31] VITALS: BP 111/64; PULSE 98; RESP 14; O2SAT 98
--- NOTE | 2022-07-09 15:34 | ED_ITS ---
HPI - URI/Sore Throat <Roland Lehman PA-C - Last Filed: 07/09/22 15:42> General Chief Complaint: Upper Respiratory Symptoms Stated Complaint: diabetic, thinks she has covid or flu T-4 Time Seen by Provider: 07/04/22 16:21 Source: patient Mode of arrival: Ambulatory History of Present Illness HPI Narrative: 32-year-old female with past medical history type 1 diabetes, asthma presents to the ED with 1 week of fever, cough. Patient denies chest pain, shortness of breath, wheezing, nausea, vomiting, abdominal pain, dysuria, diarrhea, constipation, lightheadedness, dizziness, syncope. Patient states that she is o ut of her albuterol inhaler. Patient is coughing significantly in the ED, endorses this is her most troublesome symptom at the moment. Patient endorses checking her blood sugars regularly, denies any abnormal elevations. Related Data Previous Rx's Medication Instructions Recorded cyclobenzaprine 10 mg tablet 10 mg PO TID PRN muscle spasm #30 10/01/18 tabs diclofenac sodium 1 % topical gel 2 gram topical QID PRN pain #100 10/01/18 (Voltaren) grams ondansetron 4 mg disintegrating 4 mg PO Q8H PRN nausea and 04/10/19 tablet vomiting #10 tabs cyclobenzaprine 10 mg tablet 10 mg PO TID PRN muscle spasm #14 09/09/21 tabs hydrocodone 5 mg-acetaminophen 325 1 tab PO Q4-6H PRN pain #10 tabs 09/09/21 mg tablet ketorolac 10 mg tablet 10 mg PO Q6H PRN pain #14 tabs 09/09/21 albuterol sulfate 90 mcg/actuation 2 puff inhalation Q6H PRN 07/04/22 aerosol inhaler shortness of breath or wheezing #8.5 grams codeine 10 mg-guaifenesin 100 mg/5 5 ml PO Q6H PRN cough #473 mL 07/04/22 mL oral liquid Allergies Allergy/AdvReac Type Severity Reaction Status Date / Time ciprofloxacin [From Cipro] Allergy Intermediate Verified 09/09/21 20:38 Penicillins Allergy Verified 07/04/22 13:34 vancomycin Allergy Verified 09/09/21 20:38 Review of Systems <Roland Lehman PA-C - Last Filed: 07/09/22 15:42> Review of Systems ROS Unobtainable: All systems reviewed & are unremarkable except as noted in HPI and below Constitutional Constitutional: Denies chills, Denies fatigue, Reports fever(s), Denies frequent falls, Denies lethargy and Denies weakness Eyes Eyes: Denies change in vision, Denies eye discharge, Denies irritation and Denies loss of vision ENT Ears, Nose, Mouth, and Throat: Denies change in voice, Denies dizziness, Denies neck pain, Denies sore throat and Denies throat swelling Cardiovascular Cardiovascular: Denies chest pain, Denies irregular heart rhythm, Denies lightheadedness, Denies palpitations, Denies dyspnea, Denies dyspnea on exertion and Denies orthopnea Respiratory Respiratory: Reports cough, Denies dyspnea, Denies dyspnea on exertion and Denies wheezing Gastrointestinal Gastrointestinal: Denies abdominal pain, Denies change in bowel habits, Denies diarrhea, Denies nausea and Denies vomiting Genitourinary Genitourinary: Denies hematuria, Denies flank pain, Denies urinary incontinence and Denies urinary urgency Musculoskeletal Musculoskeletal: Denies back pain, Denies muscle weakness, Denies neck pain, Denies numbness and Denies tingling Integumentary/Breasts Skin/Breast: Denies pruritus, Denies erythema, Denies rash and Denies wounds Neurologic Neurologic: Denies behavioral changes, Denies confusion, Denies dizziness, Denies frequent falls, Denies loss of vision, Denies numbness, Denies tingling and Denies weakness Psychiatric Psychiatric: Denies anxiety, Denies behavioral changes, Denies confusion, Denies depression, Denies homicidal ideation and Denies suicidal ideation Endocrine Endocrine: Denies fatigue, Denies flushing and Denies palpitations Hematologic/Lymphatic Hematologic/Lymphatic: Denies easy bruising Allergic/Immunologic Allergic/Immunologic: Denies urticaria, Denies throat swelling and Denies wheezing Patient History <Roland Lehman PA-C - Last Filed: 07/09/22 15:42> Medical History (Updated 07/19/22 @ 00:00 by ) Type 1 diabetes Social History Smoking Status: Never smoker Smoking Status: Never smoker alcohol intake frequency: a few times a month Substance Use Type: marijuana Exam <Roland Lehman PA-C - Last Filed: 07/09/22 15:42> Narrative Exam Narrative: Const General:?cooperative, healthy appearing and comfortable HENMT Head:?normal to inspection Ears:?hearing grossly normal bilaterally Nose:?external nose normal Face and sinus:?normal facial exam and sinuses nontender Mouth:?oral mucosae normal Throat:?posterior oropharynx normal Eyes General:?appearance normal, both eyes and all related structures Neck Neck:?normal visual inspection and no lymphadenopathy noted Resp Effort & Inspection:?normal respiratory effort Auscultation:?clear to auscultation bilaterally Cardio Rate:?regular rate Rhythm:?regular rhythm Neuro General:?patient alert, patient awake and patient oriented x3 Initial Vital Signs Initial Vital Signs: Vital Signs Temperature 98.2 F 07/04/22 13:34 Pulse Rate 102 H 07/04/22 13:34 Respiratory Rate 18 07/04/22 13:34 Blood Pressure 141/74 H 07/04/22 13:34 Pulse Oximetry 99 07/04/22 13:34 Oxygen Delivery Method Room Air 07/04/22 13:34 <Vinny Hernandez MD - Last Filed: 07/26/22 07:23> Initial Vital Signs Initial Vital Signs: Vital Signs Temperature 98.2 F 07/04/22 13:34 Pulse Rate 102 H 07/04/22 13:34 Respiratory Rate 18 07/04/22 13:34 Blood Pressure 141/74 H 07/04/22 13:34 Pulse Oximetry 99 07/04/22 13:34 Oxygen Delivery Method Room Air 07/04/22 13:34 MDM - URI/Sore Throat <Roland Lehman PA-C - Last Filed: 07/09/22 15:42> Lab Data Labs: Lab Results 07/04/22 Range/Units 13:39 SARS-CoV-2 (PCR) Negative (Negative) Influenza A (RT-PCR) Flu a negative (NEGATIVE) Influenza B (RT-PCR) Flu b negative (NEGATIVE) RSV (PCR) Negative (Negative) MDM Narrative Medical decision making narrative: 32-year-old female with past medical history type 1 diabetes, asthma presents to the ED with 1 week of fever, cough. Concern for viral URI versus bronchitis versus asthma exacerbation. Physical exam is reassuring, bilateral lungs are clear to auscultation, unlikely asthma exacerbation. Obtain respiratory swab, which was negative for influenza, RSV, COVID-19. Discussed findings with patient. Prescribed cough syrup, asthma inhaler as needed. Recommend continued blood sugar monitoring, given patient is type 1 diabetic. ED return precautions were discussed with patient. Patient verbalized understanding. Medical records reviewed: Yes <Vinny Hernandez MD - Last Filed: 07/26/22 07:23> Medical Records Medical records narrative: I was immediately available in the department for consultation. Documentation has been reviewed. I agree with assessment and plan. Lab Data Labs: Lab Results 07/04/22 Range/Units 13:39 SARS-CoV-2 (PCR) Negative (Negative) Influenza A (RT-PCR) Flu a negative (NEGATIVE) Influenza B (RT-PCR) Flu b negative (NEGATIVE) RSV (PCR) Negative (Negative) Discharge Plan Departure Patient Disposition: Home Clinical Impression: Upper respiratory infection Instructions: DI for Viral Upper Respiratory Infection -- Adult Activity Restrictions/Additional Instructions: You were evaluated in the ED today for a cough, upper respiratory infection sym ptoms. You were negative for COVID-19, influenza, RSV. Your symptoms are likely due to a viral upper respiratory infection. You have been prescribed a codeine cough syrup and albuterol inhaler if needed for wheezing. Please continue to monitor your blood sugars, given that you are a type 1 diabetic. Please follow-up with your PCP as soon as possible. You may take Tylenol, ibuprofen for your symptoms, continue good hydration. Return to the ED if you experience chest pain, shortness of breath. Prescriptions: New codeine-guaifenesin 10-100 mg/5 mL liquid 5 ml PO Q6H PRN (Reason: cough) Qty: 473 0RF albuterol sulfate 90 mcg/actuation HFA aerosol inhaler 2 puff inhalation Q6H PRN (Reason: shortness of breath or wheezing) Qty: 8.5 0RF No Action ondansetron 4 mg tablet,disintegrating 4 mg PO Q8H PRN (Reason: nausea and vomiting) Qty: 10 0RF diclofenac sodium [Voltaren] 1 % gel 2 gram TOP QID PRN (Reason: pain) Qty: 100 0RF Rx Instructions: apply to left shoulder cyclobenzaprine 10 mg tablet 10 mg PO TID PRN (Reason: muscle spasm) Qty: 30 0RF cyclobenzaprine 10 mg tablet 10 mg PO TID PRN (Reason: muscle spasm) Qty: 14 0RF hydrocodone-acetaminophen 5-325 mg tablet 1 tab PO Q4-6H PRN (Reason: pain) Qty: 10 0RF ketorolac 10 mg tablet 10 mg PO Q6H PRN (Reason: pain) Qty: 14 0RF Referrals: Miscellaneous,Doctor, MD [Primary Care Provider] - Stand Alone Forms: Patient Portal/API
== END 2022-07-04 17:00 | disposition home or self-care (01) ==
PROVIDERS: Emergency Medicine; Emergency Provider Student in an Organized Health Care Education/Training Program
DX: J06.9 Acute upper respiratory infection, unspecified (principal); E10.9 Type 1 diabetes mellitus without complications; Z20.822 Contact with and (suspected) exposure to COVID-19
CPT/HCPCS: 0241U; 99281; 99282

== ENCOUNTER 2024-04-08 17:04 | Emergency (ER) | payer OTHER, SELFPAY ==
[2024-04-08 17:39] VITALS: BP 105/70; PULSE 92; RESP 18; TEMP 36.9; O2SAT 97; BMI 24.1
[2024-04-08 18:14] LABS: Appearance Urine UA CLEAR; Bilirubin Urine UA NEGATIVE (NEGATIVE); Color Urine UA YELLOW; Glucose Urine UA 3+ g/dL (Negative); Ketones Urine UA 1+ (NEGATIVE); Leukocyte Esterase Urine UA NEGATIVE (NEGATIVE); Nitrite Urine UA NEGATIVE (Negative); Occult Blood Urine UA NEGATIVE (Negative); Protein Urine UA NEGATIVE (Negative); Specific Gravity Urine UA 1.015 (1.000-1.035)
[2024-04-08 18:17] LABS: UR Morphine/Opiate cutoff 300 Negative (Negative); Ur Creatinine Normal (Normal); Ur Specific Gravity Normal (Normal); Urine Amphetamines Negative (Negative); Urine Barbiturates Negative (Negative); Urine Benzodiazepines Negative (Negative); Urine Cocaine Negative (Negative); Urine MDMA Negative (Negative); Urine Methadone Negative (Negative); Urine Methamphetamines Negative (Negative); Urine Oxycodone Negative (Negative); Urine Phencyclidine Negative (Negative); Urine Tetrahydrocannabinol Negative (Negative); Urine Tricyclic Antidepressant Negative (Negative); Urine pH Normal (Normal)
[2024-04-08 18:23] LABS: Bacteria Urine Moderate (10-30); Culture Indicated Urine Cult Not Indicated; RBC Urine 0-1/HPF (0-5/HPF); Squamous Epithelial Cell Urine 5-10 /HPF (0-5/HPF); Urine Volume 10mL (spun); WBC Urine 0-1/HPF (0-5/HPF)
[2024-04-08 18:23] LABS: Add Manual Diff / Slide Review NO; Basophils Absolute Auto 100 /uL (0-100); Basophils Percent Auto 0.8 % (0-2); Eosinophils Absolute Auto 100 /uL (0-450); Eosinophils Percent Auto 1.1 % (2-4); Hematocrit 43.3 % (36-46); Hemoglobin 14.3 g/dL (12.0-16.0); Lymphocytes Absolute Auto 1600 /uL (1100-4500); Lymphocytes Percent Auto 23.8 % (25-40); Mean Corpuscular HGB Conc 33.1 % (30-36); Mean Corpuscular Hemoglobin 29.2 PG (26-34); Mean Corpuscular Volume 88.1 fL (80-100); Monocytes Absolute Auto 300 /uL (0-900); Monocytes Percent Auto 4.8 % (3-14); Neutrophils Absolute Auto 4800 /uL (1500-7000); Neutrophils Percent Auto 69.5 % (50-75); Platelet Count 382 X10^3/uL (150-400); Red Blood Cell Count 4.91 X10^6/uL (4.0-5.2); Red Cell Distribution Width 13.7 % (11.6-14.8); White Blood Cell Count 6.9 X10^3/uL (4.5-11.0)
--- NOTE | 2024-04-08 18:31 | CM.SWNOTE ---
ED RECORD KEEPER Assessment Note: RECORD KEEPER - Bus System Operator Assessment RECORD KEEPER/Bus System Operator Assessment Time Spent with Patient Start date 04/08/24 Visit Start Time 17:40 End date 04/08/24 Visit End Time 17:55 Total time Care Management spent on 15 minutes patient visit-in minutes Mental Health Screening Include Onset, Duration, Intensity Presenting Problem Patient presented to the ED via POV (accompanied by a friend) due to suicidal ideation. Patient explains she is currently suicidal but no plan at the moment. Per patient, she had a gun to my mouth about two weeks ago and has been cutting her right thigh; as recent as last night . Patient explains she has also been utilizing her insulin needles to poke her right leg. Precipitating Event(s) Patient states she has been having relationship issues and that relationship ended today Patient explained she also worked with this partner so she lost her job today as well. Patient Strengths Patient is supported by her friend, Mojgan, who is here at the ED today. Patient also stated she has family in the surrounding area who can support pt as well. Current Behavioral Health Provider(s) Patient sees a virtual [facility], Provider, Ph. # psychiatrist but no mental health counseling at the moment. Patient could not remember their psychiatrist name at the time of assessment. Psych. Hx Mental Health and Chemical Patient explains previous MH Dependency dx of bipolar II, borderline personality disorder, major depressive disorder, generalized anxiety disorder and PTSD. Patient reports a most recent prescription of Abilify, trazadone, gabapentin , and wellbutrin. Patient reports she has not been compliant with prescription and is not currently taking any medications except her insulin. Family Hx of Behavioral Abuse None reported. Psychiatric Hospitalizations (date(s)/ Patient denies any psychiatric location) hospitalizations in the past. Psychosocial information & Support Patient is a 34yo female, Systems resident of [place]. 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 Legal Concerns Legal Matters - Outstanding Issues None reported. Mental Status Orientation (Person/Place/Time) AOx3 Stated Mood Numb Affect (Congruent with Mood?) Flat, blunted, congruent with mood Thought Content - Specify/Describe Patient reports seeing Obsessions, Delusions, Hallucinations shadows and hearing a man on the radio, does not report command hallucinations. Thought Processes (Jjzkgif-Ufruavul-Jein Logical, coherent. Fcintcjo-Cucqfscq-Cseswznsrn- Ebtjnbxsrcpmle-Qakxxzk-Jmbjbhntpxag- Thought Blocking) Speech (Zddfhr-Wvah-Cxekjad-Rapid-Soft- Soft, pressured. Loud-Pressured) Motor (Oeuqqe-Anejvzxif-Pvzf-Other) Normal, slow. Insight (Drub-Fyrg-Btqo/Limited) Fair/limited Judgement (Crzl-Rakz-Whgg/Limited) Fair/limited Impulse Control (Adequate-Impaired) Adequate Memory (Eqcrgnten-Yeiyfg-Xjdkpi, Intact Impaired-Intact) Concentration (Intact-Impaired) Intact Attention (Intact-Impaired) Intact Behavior (Appropriate-Inappropriate) Appropriate Additional Comment Patient is calm, cooperative and communicative during assessment. Risk Assessment Suicidal Ideation (Plan) Yes Homicidal Ideation (Plan) No Comment Patient denies HI. Patient endorses SI during assessment but no plan. Patient explains that two weeks ago, she had a gun in my mouth. Patient reports this firearm is no longer in her possession as it is owned by her ex-partner. Patient explains that she cut her right thigh as recent as last night and utilizes her insulin needles to poke her leg as a form of self-harm. Patient reports a hx of suicide attempt via OD on insulin about 5 years ago. Patient was not transferred to psych placement after this attempt. Intervention Intervention Reviewed EMR and discussed with ED staff for pt?s medical status. Per EMR, no recent psych related admissions or ED presentations for this patient. RECORD KEEPER meets with patient during ED triage assessment. Patient reports the events of today which brought her to this ED presentation, patient describes Suicidal ideation and request for medication stabilization due to non- compliance. RECORD KEEPER and patient discuss next steps. Patient explains she is wanting to receive inpatient behavioral health hospitalization at this time. RECORD KEEPER reviews process of admission with patient to include medical clearance, remains agreeable to inpatient placement. At this time, it is the opinion of this RECORD KEEPER that patient would benefit from inpatient psychiatric hospitalization for SI. RECORD KEEPER informs ED provider, Dr. Kennedy, who indicates agreement. RECORD KEEPER informs pants closer. Plan RA Plan Once patient is medically clear, ED staff will attempt to find inpatient placement for patient. NATE Kline
[2024-04-08 18:35] LABS: Acetaminophen < 10 ug/mL (10-30); Alanine Aminotransferase 17 IU/L (<35); Albumin Globulin Ratio 1.3 (1.0-2.8); Alkaline Phosphatase 67 U/L (38-126); Aspartate Aminotransferase 20 IU/L (14-36); Bilirubin Total 0.7 mg/dL (0.2-1.3); Blood Urea Nitrogen 11 mg/dL (7-17); Calcium 8.6 mg/dL (8.4-10.2); Carbon Dioxide 27 mmol/L (22-32); Chloride 103 mmol/L (98-107); Estimated Glomerular Filt Rate > 60 mL/min (>60); Ethanol (ETOH) < 10 mg/dL; Globulin 3.1 g/dL (1.7-4.1); Glucose 227 mg/dL (70-100); HEMOLYSIS < 15 (0-50); Potassium 4.2 mmol/L (3.4-5.1); Salicylate < 1.0 mg/dL (<20); Sodium 135 mmol/L (137-145); Total Protein 7.1 g/dL (6.3-8.2)
--- NOTE | 2024-04-08 18:40 | CM.SWNOTE ---
ED BOBBIN COLLECTOR Note: ED BOBBIN COLLECTOR initiated preliminary bed search for inpatient BH treatment. Pt identified a preference for the following facilities: 1. [facility] 2. [facility] 3. [facility] BOBBIN COLLECTOR calls [facility], is was reported that there are beds available and to send a packet when appropriate. BOBBIN COLLECTOR calls [facility], spoke to AJ, it was reported that there are beds available and to send a packet when appropriate. Plan: Pending medical clearance and pending acceptance at inpatient facility for voluntary BH treatment. NATE Kline
[2024-04-08 18:51] LABS: Free T4, Direct Thyroxine 0.92 ng/dL (0.78-2.19)
--- NOTE | 2024-04-08 19:14 | ED.PSYCH ---
HPI - Psych General Chief Complaint: Psychiatric Symptoms Stated Complaint: mental health issues Time Seen by Provider: 04/08/24 18:08 Source: patient Mode of arrival: Ambulatory History of Present Illness HPI Narrative: 34-year-old female with history of type 1 diabetes, bipolar disorder, borderline personality disorder presents by private vehicle from home for worsening mental health and suicidal ideations. Patient states that for the last year she has had extreme difficulty in controlling her mood and being medically stabilized. She has both a therapist and a psychiatrist, but she was not seem to be reacting well to the medications and has not found a combination that has worked well for her. Last week she had a bad break-up with her significant other and ?went into a psychosis?, cutting herself superficially on her right leg and holding a loaded gun to her mouth. Patient also states that she banged her head against the wall several times during this episode. She did not lose consciousness, she denies use of blood thinners. Patient states that she no longer has access to the guns, but her mental health is very poor and she was seeking help. Related Data Previous Rx's Medication Instructions Recorded cyclobenzaprine 10 mg tablet 10 mg PO TID PRN muscle spasm #30 10/01/18 tabs diclofenac sodium 1 % topical gel 2 gram topical QID PRN pain #100 10/01/18 (Voltaren) grams ondansetron 4 mg disintegrating 4 mg PO Q8H PRN nausea and 04/10/19 tablet vomiting #10 tabs cyclobenzaprine 10 mg tablet 10 mg PO TID PRN muscle spasm #14 09/09/21 tabs hydrocodone 5 mg-acetaminophen 325 1 tab PO Q4-6H PRN pain #10 tabs 09/09/21 mg tablet ketorolac 10 mg tablet 10 mg PO Q6H PRN pain #14 tabs 09/09/21 albuterol sulfate 90 mcg/actuation 2 puff inhalation Q6H PRN 07/04/22 aerosol inhaler shortness of breath or wheezing #8.5 grams codeine 10 mg-guaifenesin 100 mg/5 5 ml PO Q6H PRN cough #473 mL 07/04/22 mL oral liquid Allergies Allergy/AdvReac Type Severity Reaction Status Date / Time ciprofloxacin [From Cipro] Allergy Intermediate Verified 09/09/21 20:38 Penicillins Allergy Verified 07/04/22 13:34 vancomycin Allergy Verified 09/09/21 20:38 Patient History Medical History (Updated 04/08/24 @ 23:29 by Lesly Kennedy MD) Type 1 diabetes Social History Smoking Status: Never smoker Smoking Status: Never smoker alcohol intake frequency: a few times a month Substance Use Type: does not use Exam Initial Vital Signs Initial Vital Signs: Vital Signs Temperature 98.5 F 04/08/24 17:39 Pulse Rate 92 H 04/08/24 17:39 Respiratory Rate 18 04/08/24 17:39 Blood Pressure 105/70 04/08/24 17:39 Pulse Oximetry 97 04/08/24 17:39 Oxygen Delivery Method Room Air 04/08/24 17:39 Const: Awake, alert, no acute distress, nontoxic appearing HEENT: No skull step-offs, PERRLA, EOMI, TM normal bilaterally, no moran sign Cardiac: regular rate, regular rhythm RESP: unlabored, clear bilaterally, no wheezing GI: Soft, nontender, nondistended, no rebound, no guarding MSK: Atraumatic, full range of motion, pulses equal Skin: Warm, Dry, several superficial abrasions inner right thigh Neuro: AO x3, CN II-XII grossly intact, moves all extremities Psych: Flat affect, depressed mood, suicidal ideations Course Orders Ordered: ED Orders 04/08/24 17:49 Consult to MAJOR GENERAL - Associate Creative Director Stat 04/08/24 17:55 Test Urine Stat Urinalysis and Microscopic Stat Urine Drug Screen, Rapid Stat 04/08/24 18:16 Acetaminophen Stat Complete Blood Count AUTO DIFF Stat Comprehensive Metabolic Panel Stat Ethanol (ETOH) Stat Free T4, Direct Thyroxine Stat Salicylate Stat Thyroid Stimulating Hormone Stat 04/08/24 21:41 COVID19 -Nasal RAPID Stat Discontinued Medications Trazodone HCl (Trazodone 50 Mg Tablet) 50 mg PO BEDTIME CASSIUS Trazodone HCl (Trazodone 50 Mg Tablet) 50 mg PO NOW ONE Stop: 04/08/24 22:33 Last Admin: 04/08/24 22:40 Dose: 50 mg Documented By: LS Vital Signs Vital signs: Vital Signs - 8 hr 04/08/24 17:39 04/08/24 22:43 Temperature 98.5 F Pulse Rate 92 H 88 Respiratory Rate 18 12 Blood Pressure 105/70 105/65 Pulse Oximetry 97 98 Oxygen Delivery Method Room Air Room Air MDM - Psych Differential Diagnosis Differential diagnosis: Likely acute psychosis, suicidal ideation and depression Lab Data 04/08/24 18:16 04/08/24 18:16 Labs: Lab Results 04/08/24 04/08/24 04/08/24 Range/Units 17:55 17:55 18:16 WBC 6.9 (4.5-11.0) X10^3/uL RBC 4.91 (4.0-5.2) X10^6/uL Hgb 14.3 (12.0-16.0) g/dL Hct 43.3 (36-46) % MCV 88.1 (80-100) fL MCH 29.2 (26-34) PG MCHC 33.1 (30-36) % RDW 13.7 (11.6-14.8) % Plt Count 382 (150-400) X10^3/uL Neut % (Auto) 69.5 (50-75) % Lymph % (Auto) 23.8 L (25-40) % [place] % (Auto) 4.8 (3-14) % Eos % (Auto) 1.1 L (2-4) % Baso % (Auto) 0.8 (0-2) % Neut # (Auto) 4800 (3471-2240) /uL Lymph # (Auto) 1600 (3602-5786) /uL [place] # (Auto) 300 (0-900) /uL Eos # (Auto) 100 (0-450) /uL Baso # (Auto) 100 (0-100) /uL Sodium 135 L (137-145) mmol/L Potassium 4.2 (3.4-5.1) mmol/L Chloride 103 (98-107) mmol/L Carbon Dioxide 27 (22-32) mmol/L BUN 11 (7-17) mg/dL Creatinine 0.61 (0.52-1.04) mg/dL Estimated GFR > 60 (>60) mL/min BUN/Creatinine Ratio 18.0 (6-22) Glucose 227 H (70-100) mg/dL Calcium 8.6 (8.4-10.2) mg/dL Total Bilirubin 0.7 (0.2-1.3) mg/dL AST 20 (14-36) IU/L ALT 17 (<35) IU/L Alkaline Phosphatase 67 (38-126) U/L Total Protein 7.1 (6.3-8.2) g/dL Albumin 4.0 (3.5-5.0) g/dL Globulin 3.1 (1.7-4.1) g/dL Albumin/Globulin Ratio 1.3 (1.0-2.8) TSH 0.620 (0.47-4.68) uIU/mL Free T4 0.92 (0.78-2.19) ng/dL Urine Color Yellow Urine Appearance Clear Urine pH 7.0 Normal (4.5-8.0) Ur Specific [place] 1.015 (1.000-1.035) Urine Protein Negative (Negative) Urine Glucose (UA) 3+ H (Negative) g/dL Urine Ketones 1+ H (NEGATIVE) Urine Occult Blood Negative (Negative) Urine Nitrate Negative (Negative) Urine Bilirubin Negative (NEGATIVE) Urine Urobilinogen 1.0 (0.2) E.U./dL Ur Leukocyte Esterase Negative (NEGATIVE) Urine RBC 0-1/hpf (0-5/HPF) Urine WBC 0-1/hpf (0-5/HPF) Ur Squamous Epith Cells 5-10 /hpf H (0-5/HPF) Urine Bacteria Moderate (10-30) H (None) Ur Culture Indicated? Cult not indicated Vol Urine Centrifuged 10ml (spun) Urine Test Negative (Negative) Salicylates < 1.0 (<20) mg/dL U Opiates 300ng/mL cut Negative (Negative) Ur Oxycodone Screen Negative (Negative) Urine Methadone Screen Negative (Negative) Acetaminophen < 10 (10-30) ug/mL Ur Barbiturates Screen Negative (Negative) U Tricyclic Antidepress Negative (Negative) Ur Phencyclidine Scrn Negative (Negative) Ur Amphetamines Screen Negative (Negative) U Methamphetamines Scrn Negative (Negative) Ur MDMA Scrn (Ecstasy) Negative (Negative) U Benzodiazepines Scrn Negative (Negative) Urine Cocaine Screen Negative (Negative) U Marijuana (THC) Screen Negative (Negative) Urine Specific [place] Normal (Normal) Ethyl Alcohol < 10 ( - 10) mg/dL Ur Creatinine Normal (Normal) SARS-CoV-2 (PCR) (Negative) 04/08/24 Range/Units 21:41 WBC (4.5-11.0) X10^3/uL RBC (4.0-5.2) X10^6/uL Hgb (12.0-16.0) g/dL Hct (36-46) % MCV (80-100) fL MCH (26-34) PG MCHC (30-36) % RDW (11.6-14.8) % Plt Count (150-400) X10^3/uL Neut % (Auto) (50-75) % Lymph % (Auto) (25-40) % [place] % (Auto) (3-14) % Eos % (Auto) (2-4) % Baso % (Auto) (0-2) % Neut # (Auto) (6268-7352) /uL Lymph # (Auto) (6791-5844) /uL [place] # (Auto) (0-900) /uL Eos # (Auto) (0-450) /uL Baso # (Auto) (0-100) /uL Sodium (137-145) mmol/L Potassium (3.4-5.1) mmol/L Chloride (98-107) mmol/L Carbon Dioxide (22-32) mmol/L BUN (7-17) mg/dL Creatinine (0.52-1.04) mg/dL Estimated GFR (>60) mL/min BUN/Creatinine Ratio (6-22) Glucose (70-100) mg/dL Calcium (8.4-10.2) mg/dL Total Bilirubin (0.2-1.3) mg/dL AST (14-36) IU/L ALT (<35) IU/L Alkaline Phosphatase (38-126) U/L Total Protein (6.3-8.2) g/dL Albumin (3.5-5.0) g/dL Globulin (1.7-4.1) g/dL Albumin/Globulin Ratio (1.0-2.8) TSH (0.47-4.68) uIU/mL Free T4 (0.78-2.19) ng/dL Urine Color Urine Appearance Urine pH (4.5-8.0) Ur Specific [place] (1.000-1.035) Urine Protein (Negative) Urine Glucose (UA) (Negative) g/dL Urine Ketones (NEGATIVE) Urine Occult Blood (Negative) Urine Nitrate (Negative) Urine Bilirubin (NEGATIVE) Urine Urobilinogen (0.2) E.U./dL Ur Leukocyte Esterase (NEGATIVE) Urine RBC (0-5/HPF) Urine WBC (0-5/HPF) Ur Squamous Epith Cells (0-5/HPF) Urine Bacteria (None) Ur Culture Indicated? Vol Urine Centrifuged Urine Test (Negative) Salicylates (<20) mg/dL U Opiates 300ng/mL cut (Negative) Ur Oxycodone Screen (Negative) Urine Methadone Screen (Negative) Acetaminophen (10-30) ug/mL Ur Barbiturates Screen (Negative) U Tricyclic Antidepress (Negative) Ur Phencyclidine Scrn (Negative) Ur Amphetamines Screen (Negative) U Methamphetamines Scrn (Negative) Ur MDMA Scrn (Ecstasy) (Negative) U Benzodiazepines Scrn (Negative) Urine Cocaine Screen (Negative) U Marijuana (THC) Screen (Negative) Urine Specific [place] (Normal) Ethyl Alcohol ( - 10) mg/dL Ur Creatinine (Normal) SARS-CoV-2 (PCR) Negative (Negative) Point of Care Testing Glucose POC 192 MDM Narrative Medical decision making narrative: Worsening suicidal ideations, not well controlled on outpatient medication regimen. Patient states she did hit her head several days ago, but did not lose consciousness, has no blood thinners. [facility] and [place] head CT rules negative. Physical exam unremarkable, no indication for CT imaging at this time. Patient reports that she was up-to-date on her tetanus vaccinations, and her lacerations on her right leg are very superficial and do not need sutures. Laboratory work reviewed. Mild hyperglycemia, expected for patient's diabetes. She is not in DKA. Medically cleared for inpatient psychiatric care. Discharge Plan Departure Patient Disposition: Xfer Psychiatric Hosp Clinical Impression: Suicidal ideation, Type 1 diabetes Prescriptions: No Action ondansetron 4 mg tablet,disintegrating 4 mg PO Q8H PRN (Reason: nausea and vomiting) Qty: 10 0RF codeine-guaifenesin 10-100 mg/5 mL liquid 5 ml PO Q6H PRN (Reason: cough) Qty: 473 0RF albuterol sulfate 90 mcg/actuation HFA aerosol inhaler 2 puff inhalation Q6H PRN (Reason: shortness of breath or wheezing) Qty: 8.5 0RF diclofenac sodium [Voltaren] 1 % gel 2 gram TOP QID PRN (Reason: pain) Qty: 100 0RF Rx Instructions: apply to left shoulder cyclobenzaprine 10 mg tablet 10 mg PO TID PRN (Reason: muscle spasm) Qty: 30 0RF cyclobenzaprine 10 mg tablet 10 mg PO TID PRN (Reason: muscle spasm) Qty: 14 0RF hydrocodone-acetaminophen 5-325 mg tablet 1 tab PO Q4-6H PRN (Reason: pain) Qty: 10 0RF ketorolac 10 mg tablet 10 mg PO Q6H PRN (Reason: pain) Qty: 14 0RF Referrals: Miscellaneous,Doctor, MD [Primary Care Provider] -
[2024-04-08 19:28] LABS: Pregnancy Test Urine Negative (Negative)
[2024-04-08 22:04] LABS: COVID19 -Nasal RAPID Negative (Negative)
[2024-04-08] MEDS: TRAZODONE 50 MG TABLET PO (22:40)
[2024-04-08 22:43] VITALS: BP 105/65; PULSE 88; RESP 12; O2SAT 98
== END 2024-04-08 23:35 ==
PROVIDERS: Emergency Medicine; Emergency Provider Emergency Medicine
DX: R45.851 Suicidal ideations (principal); E10.65 Type 1 diabetes mellitus with hyperglycemia; Z11.52 Encounter for screening for COVID-19
CPT/HCPCS: 80053; 80305; 80320; 80329; 81001; 81025; 82962; 84439; 84443; 85025; 87635; 99284; G0480